=== PATIENT | female | born 1990 | race American Indian/Alaskan Native ===

== ENCOUNTER 2020-07-13 06:58 | Day surgery (SDC) | payer MEDICAID ==
[2020-07-07 11:32] LABS: Hemoglobin 13.1 gm/dl (10.1-14.3); Mean Corpuscular HGB Conc 35 % (30-34); Mean Corpuscular Volume 92 fl (79-97); Platelet Count 280 K/mm3 (140-440); Red Blood Count 4.15 M/mm3 (3.65-5.03); Red Cell Distribution Width 13.9 % (13.2-15.2)
[2020-07-07 11:42] LABS: Blood Urea Nitrogen 9 mg/dL (7-17); Calcium 8.6 mg/dL (8.4-10.2); Hemolysis Index 14
[2020-07-07 11:51] LABS: BUN/Creatinine Ratio 15
[2020-07-13] MEDS ORDERED: ceFAZolin/STERILE WATER 2 GM/20 ML SYRINGE IV NR (07:00)
[2020-07-13] MEDS ORDERED: BACTERIOSTATIC SODIUM CHLORIDE 0.9% 30 ML VIAL INFILTRATI ONE (07:01)
[2020-07-13] MEDS ORDERED: LACTATED RINGERS 1,000 ML ONE (07:01)
[2020-07-13] MEDS ORDERED: LACTATED RINGERS 1,000 ML IV SCH (07:15)
[2020-07-13] MEDS ORDERED: ACETAMINOPHEN 500 MG TAB PO NR (07:23)
[2020-07-13] MEDS ORDERED: ONDANSETRON 4 MG/2 ML INJ IV PRN (07:23)
[2020-07-13] MEDS ORDERED: fentaNYL 100 MCG/2 ML INJ IV NR (07:23)
[2020-07-13] MEDS ORDERED: HYDROmorphone 1 MG/1 ML INJ IV PRN ×2 (07:23)
[2020-07-13] MEDS ORDERED: MAGNESIUM OXIDE 400 MG TAB PO NR (07:23)
[2020-07-13] MEDS ORDERED: fentaNYL 100 MCG/2 ML INJ ONE (07:23)
[2020-07-13] MEDS ORDERED: propofoL 200 MG/20 ML VIAL IV ONE (07:24)
--- NOTE | 2020-07-13 07:25 | Anesthesia Day of Surgery ---
Anesthesia Day of Surgery - Day of Surgery Patient Examined: Yes Patient H&P Reviewed: Yes Patient is NPO: Yes
--- NOTE | 2020-07-13 07:26 | Anesthesia Consultation ---
Anesthesia Consult and Med Hx Date of service: 07/13/20 - Airway Anesthetic Teeth Evaluation: Good ROM Head & Neck: Adequate Mental/Hyoid Distance: Adequate Mallampati Class: Class II Intubation Access Assessment: Good - Pre-Operative Health Status ASA Pre-Surgery Classification: ASA2 Proposed Anesthetic Plan: General Nerve Block: TAP - Pulmonary Hx Smoking: No Hx Asthma: Yes (HAS INHALERS TO USE PRN) Hx Respiratory Symptoms: Yes (+2FS) Hx Pneumonia: Yes (OCTOBER 2019 WITH COVID; has residual symptoms) Hx Sleep Apnea: No (DENISE PRE SCREEN NEGATIVE) - Cardiovascular System Hx Hypertension: No - Central Nervous System Hx Psychiatric Problems: No - Hematic Hx Anemia: Yes (WITH - NO TRANSFUSION) Hx Sickle Cell Disease: Yes (TRAIT ONLY) - Other Systems Hx Cancer: No
[2020-07-13] MEDS ORDERED: BUPIVACAINE-EPINEPHRINE/PF 0.5%-1:200,000 (30 ML) VIAL INFILTRATI ONE (07:46)
[2020-07-13] MEDS ORDERED: dexAMETHasone 20 MG/5 ML VIAL ONE ×2 (07:47→09:25)
[2020-07-13] MEDS ORDERED: SODIUM CHLORIDE P/F VIAL 10 ML 30 ML ONE (07:52)
[2020-07-13] MEDS ORDERED: BUPIVACAINE/PF (0.5%) 5 MG/1 ML 30 ML VIAL INFILTRATI ONE (07:56)
[2020-07-13] MEDS ORDERED: LIDOCAINE (1%) 10 MG/1 ML VIAL 20 ML MDV ONE (07:56)
[2020-07-13] MEDS ORDERED: MIDAZOLAM 2 MG/2 ML INJ IV NR (08:00)
[2020-07-13] MEDS ORDERED: GABAPENTIN 300 MG CAP PO NR (08:00)
[2020-07-13] MEDS ORDERED: CELECOXIB 200 MG CAP PO NR (08:00)
[2020-07-13] MEDS ORDERED: PHENYLEPHRINE/NS 1,000 MCG/10 ML SYRINGE (OR USE) IV ONE (09:25)
[2020-07-13] MEDS ORDERED: LIDOCAINE MPF (2%) 20 MG/1 ML VIAL 5 ML ONE (09:25)
[2020-07-13] MEDS ORDERED: ROCURONIUM 50 MG/5 ML INJ IV ONE ×2 (09:25)
[2020-07-13] MEDS ORDERED: ONDANSETRON 4 MG/2 ML INJ ONE (09:25)
[2020-07-13] MEDS ORDERED: GLYCOPYRROLATE 0.4 MG/2 ML INJ ONE (09:25)
[2020-07-13] MEDS ORDERED: ESMOLOL 100 MG/10 ML INJ IV ONE (09:26)
[2020-07-13] MEDS ORDERED: NEOSTIGMINE 10MG/10 ML INJ MDV ONE (09:30)
[2020-07-13] MEDS ORDERED: WATER FOR IRRIG STERILE 1,500 ML BOTTLE IR ONE (09:38)
[2020-07-13] MEDS ORDERED: oxyCODONE /ACETAMINOPHEN 5-325MG TAB PO PRN (10:50)
--- NOTE | 2020-07-13 10:50 | Short Stay Summary ---
"Short Stay Documentation Date of service: 07/13/20 - History Principal diagnosis: ventral hernia H&P: obtained from office - Allergies and Medications Current Medications: Allergies No Known Allergies Allergy (Verified 07/05/20 17:39) Home Medications Medication Instructions Recorded Confirmed Last Taken Type Albuterol Sulfate [Albuterol 0.63% 0.63 mg IH PRN 07/05/20 07/05/20 07/12/20 History NEBS] Combivent Respimat 1 spray INHALATION PRN 07/05/20 07/05/20 07/12/20 History Active Medications Acetaminophen (Acetaminophen 500 Mg Tab) 1,000 mg PO ONCE NR Stop: 07/13/20 20:00 Last Admin: 07/13/20 07:40 Dose: 1,000 mg Documented by: Cefazolin Sodium (Cefazolin/Sterile Water 2 Gm/20 Ml Syringe) 2 gm IV PREOP NR Stop: 07/13/20 20:00 Celecoxib (Celecoxib 200 Mg Cap) 400 mg PO PREOP NR Stop: 07/13/20 20:00 Last Admin: 07/13/20 07:40 Dose: 400 mg Documented by: Fentanyl (Fentanyl 100 Mcg/2 Ml Inj) 100 mcg IV ONCE NR Stop: 07/13/20 20:00 Last Admin: 07/13/20 07:56 Dose: 100 mcg Documented by: Gabapentin (Gabapentin 300 Mg Cap) 600 mg PO PREOP NR Stop: 07/13/20 20:00 Last Admin: 07/13/20 07:40 Dose: 600 mg Documented by: Hydromorphone HCl (Hydromorphone 1 Mg/1 Ml Inj) 0.25 mg IV Q10MIN PRN PRN Reason: Pain, Moderate (4-6) Stop: 07/13/20 23:00 Hydromorphone HCl (Hydromorphone 1 Mg/1 Ml Inj) 0.5 mg IV Q10MIN PRN PRN Reason: Pain , Severe (7-10) Stop: 07/13/20 23:00 Lactated Ringer's (Lactated Ringers) 1,000 mls @ 100 mls/hr IV DIRECT KAMINI Last Admin: 07/13/20 07:40 Dose: 100 mls/hr Documented by: Magnesium Oxide (Magnesium Oxide 400 Mg Tab) 400 mg PO ONCE NR Stop: 07/13/20 20:00 Last Admin: 07/13/20 07:40 Dose: 400 mg Documented by: Midazolam HCl (Midazolam 2 Mg/2 Ml Inj) 2 mg IV PREOP NR Stop: 07/13/20 23:59 Last Admin: 07/13/20 07:55 Dose: 2 mg Documented by: - Brief post op/procedure progress note Date of procedure: 07/13/20 Pre-op diagnosis: ventral hernia Post-op diagnosis: same Procedure: Ventral hernia containing incarcerated preperitoneal fat. Total hernia defect measures 3.5cmx2.5cm, repaired with ventralight st 11.4 cm mesh Anesthesia: GETA, other (TAP BLOCK) Surgeon: BETH LAI (GERDA SHEARER (assist)) Estimated blood loss: minimal Pathology: list (hernia sac and contents) Specimen disposition: to lab Condition: stable - Hospital course Hospital course: Pt observed in PACU and discharged to home in stable condition when criteria met. - Disposition Condition at discharge: Good Disposition: DC-01 TO HOME OR SELFCARE Short Stay Discharge Plan Activity: other (no heavy lifting x 6 weeks, no more than 15 lbs) Diet: low fat Wound: open to air, per your surgeon's advice Additional Instructions: General Surgery Beth Lai DO [address] [facility], [facility] | [place] [address] | F ([phone]) [email or web address] You have undergone surgery to repair an umbilical hernia with mesh Diet: Regular diet Make sure to drink plenty of water and stay hydrated Activity: You are encouraged to walk and may go up and down the steps. [address]. [address] if you are taking prescription, narcotic pain medications. 2. Do not do any heavy lifting greater than 15 lbs for next 6 weeks 3. Wear abdominal binder during daytime, may remove during shower and sleep. Showering: You may shower tomorrow. Leave outer dressing on for 7 days. Pat incision dry, do not scrub. Do not submerge incision in bathtub, pool, hottub for 2 weeks. Wound care instructions: There is glue on your incisions which will fall off on its own. Pain medications: You have been given a prescription for ibuprofen, gabapentin, and Percocet. Take exactly as prescribed. If you have any unused prescription pain medication, please return to your pharmacy to have is discarded. You may use ice pack to incisions to help with pain and bruising. Reasons to call Surgeons office: If you have fevers >100.4 If you are having increasing abdominal pain or vomiting If you have pain that is not controlled with prescription pain medications If you have drainage if pus or redness around the incisions. When to come back to see your Surgeon: Please call the office ([phone]) to make an appointment to see the surgeon in 2 week. Call if you have any questions. 11 [facility] Ground floor Follow up with: PAMELA SANCHEZ NP-C [Primary Care Provider] - 7 Days BETH LAI DO [Staff Physician] - 14 Days Prescriptions: Celecoxib [celeBREX] 200 mg PO BID 3 Days #6 capsule Gabapentin 300 mg PO BID #6 capsule oxyCODONE /ACETAMINOPHEN [Percocet 5/325] 1 tab PO Q6HR PRN #20 tablet PRN Reason: Pain , Severe (7-10)"
--- NOTE | 2020-07-13 14:12 | Operative Report ---
Operative Report Operative Report: Date of procedure: 07/13/20 Pre-op diagnosis: ventral hernia Post-op diagnosis: same Procedure: Ventral hernia containing incarcerated preperitoneal fat. Total hernia defect measures 3.5cmx2.5cm, repaired with ventralight st 11.4 cm mesh Anesthesia: GETA, other (TAP BLOCK) Surgeon: BETH LAI Negotiator Sales: GERDA SHEARER Estimated blood loss: minimal Pathology: list (hernia sac and contents) Specimen disposition: to lab Condition: stable Hospital course: Pt observed in PACU and discharged to home in stable condition when criteria met. HPI and indication: 30-year-old female who presents to the surgery clinic for evaluation of a hernia. Patient states the area was uncomfortable. She was sent for CT scan for further evaluation and was found to have a fat-containing supraumbilical ventral hernia. The hernia was not reducible on exam. It was recommended that the hernia be repaired. All risk, benefits, alternatives to surgery discussed with patient and questions answered. It was recommended that the hernia be repaired robotically. Alternatives such as open versus laparoscopic repair were also discussed. The patient was in agreement and consent obtained. Procedure in detail: The patient was identified in the preoperative area and taken back to the operating room and placed on the operating room table in supine position. After anesthesia was induced, both arms were tucked with all bony prominences padded appropriately. The abdomen was then prepped and draped in usual sterile fashion and a timeout was performed. The patient had a TAP block performed by anesthesia preoperatively. A manny incision was made in the left upper quadrant at Pitts's point through which a Veress needle was inserted. The Veress needle position was confirmed using the saline drop test and the abdomen insufflated to 15 mmHg without incident. A 5 mm incision was made in the right upper quadrant through which a 5 mm Optiview trocar was placed under direct visualization. The abdomen was inspected and there was no underlying injury to any of the abdominal structures. The Veress needle was identified and removed. A 12 mm balloon trocar was placed in the right lateral abdomen and an 8 mm robotic trocar in the right lower quadrant under direct visualization. An 8 mm robotic trocar was placed in the right upper abdomen several centimeters lateral to the 5 mm trocar in order to obtain more distance from the hernia. The 5 mm right upper quadrant trocar was removed and the skin approximated with 4-0 Monocryl subcuticular stitch. The patient was tilted to the left and the robot docked. A fenestrated bipolar was placed in arm #2 and a monopolar scissor in arm #1. The surgeon was then transferred to the console. The area of the hernia was identified. There was no defect in the peritoneum but it was obvious that there was preperitoneal fat contained within the area of the hernia. The peritoneum was scored and the preperitoneal flap created. Once the hernia was encountered the preperitoneal fat was dissected and reduced. During the dissection there were 3 fascial defects encountered. The 2 superior defects were connected in order to facilitate reduction of a very large amount of preperitoneal fat. Due to the thinness of the peritoneum, a large hole was created during the dissection of the preperitoneal flap. Therefore it was decided to resect this peritoneum along with the incarcerated preperitoneal fat and perform a intraperitoneal placement of mesh. The falciform ligament was ligated and transected. The total dimensions of the hernia measured 3.5 x 2.5 cm. An 11.[address] composite mesh was chosen to repair the defect. This was placed into the abdomen along with suture material. The intra-abdominal pressure was reduced to 8 mmHg and the fascial defects were closed using running 0 V-Loc suture. The mesh was then centered over the defect with the coated side towards the bowel. It was secured to the posterior fascia with an interrupted 2-0 Vicryl stitch. It was then sutured circumferentially to the posterior fascia using running 2-0 VLoc suture x2. The mesh was seen to lay flat and cover the defect with adequate overlap. The robot was then undocked and the surgeon scrubbed back in. The remainder of the case was performed laparoscopically. All sharp and suture material was removed under direct visualization. The 12 mm port was removed and the fascia closed with 2 interrupted 0-vicryl stitches using the Alvaro Thomson device.the other ports were removed under direct visualization the abdomen slowly desufflated. The skin incisions were closed with 4-0 Monocryl subcuticular stitches and skin glue. Once the glue was dry a 4 x 4 gauze was balled up and placed at the site of the hernia and secured with a Tegaderm. At the end of the case, all sponge, instrument, sharp counts were correct 2. An abdominal binder was applied to the patient. The patient was awoken from anesthesia, extubated and taken to PACU in stable condition.
--- NOTE | 2020-07-13 14:47 | Post Anesthesia Evaluation ---
- Post Anesthesia Evaluation Patient Participated: Yes Airway Patent: Yes Stable Respiratory Function: Yes Nausea/Vomiting: No Temp > 96.8F: Yes Pain Manageable: Yes Adequeate Hydration: Yes Anesthesia Complications: No Block Receding Appropriately: Not Applicable Patient on Ventilator: No
[2020-07-13 19:05] VITALS: BP 114/72
== END 2020-07-13 06:59 | disposition home or self-care (01) ==
LOC: OR 06:58
PROVIDERS: ATTEND Surgery
DX: K43.6 Other and unspecified ventral hernia with obstruction, without gangrene (principal); G43.909 Migraine, unspecified, not intractable, without status migrainosus; J45.909 Unspecified asthma, uncomplicated; Z79.899 Other long term (current) drug therapy; Z87.01 Personal history of pneumonia (recurrent); Z98.890 Other specified postprocedural states; Z86.19 Personal history of other infectious and parasitic diseases; Z86.2 Personal history of diseases of the blood and blood-forming organs and certain disorders involving the immune mechanism
CPT/HCPCS: 36415; 49653; 80048; 84703; 85027; 88302; C1781; J0690; J1100; J1170; J2250; J2370; J2405; J2704; J2710; J3010; J7120; S2900; U0003; 64450